=== PATIENT | male | born 1960 | race Caucasian/White ===

== ENCOUNTER → 2017-07-16 | Outpatient (CLI) | payer BC ==
[~2017-07-16] VITALS: Ht 182.9 cm; Wt 103.6 kg
[~2017-07-16] MED LIST: CIALIS20 MG PO; CINNAMON500 MG PO; GEMFIBROZIL600 MG PO; GOOD SENSE ASPI81 M1 PO; HYZAAR 12.5 MG-1 TA1 PO; NATURE'S BLEND500 M1 PO; NIACIN500 M6 PO; NIACINAMIDE500 MG PO; PREVACID 15MG15 M1 PO; SILDENAFIL CITR20 MG PO
[2017-07-16 09:33] VITALS: BP 138/80
== END ==
LOC: AMSURD 09:13
DX: Z00.00 Encounter for general adult medical examination without abnormal findings (principal)

== ENCOUNTER → 2018-04-29 | Outpatient (CLI) | payer BC ==
[2017-07-16 09:33] VITALS: BP 138/80
== END ==
LOC: RAD 08:27
DX: M25.562 Pain in left knee (principal)

== ENCOUNTER → 2021-06-03 | Outpatient (REF) | LOC: LAB 12:01 | DX: Z00.00 Encounter for general adult medical examination without abnormal findings (principal); Z12.5 Encounter for screening for malignant neoplasm of prostate ==